=== PATIENT | female | born 1970 | race Caucasian/White ===

== ENCOUNTER 2018-02-04 09:31 | Day surgery (SDC) | payer BC ==
[2018-01-31 17:06] LABS: BASOPHILS % (AUTO) 0.3 % (0-1); EOSINOPHILS # (AUTO) 0.1 X10'3 (0-0.9); EOSINOPHILS % (AUTO) 1.4 % (0-6); LYMPHOCYTES # (AUTO) 2.7 X10'3 (1.1-4.8); MEAN CORPUSCULAR HEMOGLOBIN 32.8 PG (27.0-31.0); MEAN CORPUSCULAR VOLUME 93.6 FL (78-98); MEAN PLATELET VOLUME 8.1 FL (7.4-10.4); MONOCYTES # (AUTO) 0.7 X10'3 (0-0.9); MONOCYTES % (AUTO) 7.5 % (2-12); NEUTROPHILS # (AUTO) 6.1 X10'3 (1.8-7.7); NEUTROPHILS % (AUTO) 62.8 % (42-75); PRE OP HEMATOCRIT 39.7 % (35.0-45.0); PRE OP HEMOGLOBIN 13.9 g/dL (12.0-16.0); PRE OP PLATELET COUNT 258 X10'3 (140-440); RED BLOOD COUNT 4.24 X10'6 (4.20-5.60); RED CELL DISTRIBUTION WIDTH 12.5 % (11.5-14.5)
[2018-01-31 17:13] LABS: PRE OP PROTIME 10.7 SECONDS (9.0-12.0)
[2018-01-31 17:18] LABS: ALBUMIN 3.7 G/DL (3.4-5.0); ALBUMIN/GLOBULIN RATIO 0.9 (1.1-1.5); ALKALINE PHOSPHATASE 71 IU/L (46-116); BLOOD UREA NITROGEN 16 MG/DL (7-18); BUN/CREATININE RATIO 18.8 (6.6-38.0); CALCIUM 9.5 MG/DL (8.5-10.1); CHLORIDE 102 MMOL/L (99-107); CREATININE 0.85 MG/DL (0.40-0.90); PRE OP ALT 23 U/L (30-65); PRE OP ANION GAP 10 (8-16); PRE OP AST 20 U/L (10-37); PRE OP BILIRUB, TOTAL 0.4 MG/DL (0.0-1.0); PRE OP GLUCOSE 96 MG/DL (70-104); PRE OP SODIUM 139 MMOL/L (135-145); TOTAL CARBON DIOXIDE 27.2 MMOL/L (24-32); TOTAL PROTEIN 7.8 G/DL (6.4-8.2); eGFR 72 ML/MIN
[2018-01-31 17:54] LABS: HCG SERUM QL NEGATIVE
[2018-02-04] VITALS (22 sets, daily range): BP systolic 97–129; BP diastolic 49–77
[~2018-02-04] VITALS: Ht 157.5 cm; Wt 68.3 kg
[~2018-02-04 09:31] MED LIST: BUPIVAcaine/PF 2.5mg/ml (0.25%) 10ml vial ONE; CITA10TA9 PO; GENTAMICIN IV ONE; LIDOcaine 1% 30ml preserv. free vial ONE; LISI-604 PO; NORMAL SALINE IV ONE; clindamycin phosphate 40gm vag cream ONE; clindamycin-Cleocin 900mg/D5W 50 ML IV ONE; famotidine 20mg tablet PO ONE; morphine 10mg/ml inj. ONE; ringers solution, lacted 1,000 ML IV SCH; vasoPRESSIN 20 units/ml inj. ONE
[2018-02-04] MEDS ORDERED: LIDOcaine 1% (10mg/ml) 2ml vial ONE (09:47)
[2018-02-04] MEDS ORDERED: scopolamine 1.5mg patch.TD72 TD ONE (11:27)
[2018-02-04] MEDS ORDERED: midazolam 2 mg/2 ml injection ONE (12:43)
[2018-02-04] MEDS ORDERED: fentaNYL /PF 50mcg/ml 5ml ampule ONE (12:44)
[2018-02-04] MEDS ORDERED: sevoflurane 250ml liquid IH ONE (12:45)
[2018-02-04] MEDS ORDERED: LIDOcaine 2% (20mg/ml) 5ml vial ONE (12:59)
[2018-02-04] MEDS ORDERED: rocuronium 10mg/ml inj IV ONE (12:59)
[2018-02-04] MEDS ORDERED: propofol inj 20 ML IV ONE (12:59)
[2018-02-04] MEDS ORDERED: fluoroscein sod 10% (100mg/ml) 5ml vial ONE (13:02)
[2018-02-04] MEDS ORDERED: dexamethasone sod phosphate 4mg/ml inj. ONE (13:02)
[2018-02-04] MEDS ORDERED: ceFAZolin 1000mg inj ONE (13:15)
[2018-02-04] MEDS ORDERED: glycopyrrolate 0.2mg/ml inj ONE (14:00)
[2018-02-04] MEDS ORDERED: neostigmine methylsulfate 1 MG/ML 10ml vial ONE (14:00)
[2018-02-04] MEDS ORDERED: magnesium hydroxide 30ml (MOM) UD suspension PO PRN (15:10)
[2018-02-04] MEDS ORDERED: naloxone 0.4 mg/ml inj IV PRN (15:10)
[2018-02-04] MEDS ORDERED: ondansetron/PF 4mg/2ml inj IV PRN ×2 (15:10→15:20)
[2018-02-04] MEDS ORDERED: HYDROcodone/acetaminophen 5mg/325mg tablet PO PRN ×2 (15:10)
[2018-02-04] MEDS ORDERED: normal saline 500ml IV soln 500 ML IV PRN (15:10)
[2018-02-04] MEDS: ringers solution, lacted 1,000 ML IV SCH ×2 (15:10→20:18)
[2018-02-04] MEDS ORDERED: diphenhydrAMINE 50 mg/ml inj IV PRN (15:10)
[2018-02-04] MEDS ORDERED: temazepam 15mg capsule PO PRN (15:10)
[2018-02-04] MEDS ORDERED: CADD PCA waste documentation MC PRN (15:10)
[2018-02-04] MEDS ORDERED: ringers solution, lacted 1,000 ML IV SCH (15:17)
[2018-02-04] MEDS ORDERED: morphine 4 MG/ML inj SYRINge IV PRN ×2 (15:20)
[2018-02-04] MEDS ORDERED: proCHLORperazine 10 MG/2 ml inj IV PRN (15:20)
[2018-02-04] MEDS ORDERED: meperidine/PF 25mg/ml syringe IV PRN ×3 (15:20)
[2018-02-04] MEDS: HYDROmorphone/NS 1 mg/ml CADD 50 ML IV SCH ×5 (15:33→23:00)
[2018-02-04] MEDS: simethicone 80mg chew tab PO SCH (20:16)
[2018-02-04] MEDS: docusate sod 100mg capsule PO SCH (20:17)
[2018-02-04] MEDS: ketorolac trometh. 30mg/ml inj. IV PRN (21:31)
[2018-02-05] MEDS: HYDROmorphone/NS 1 mg/ml CADD 50 ML IV SCH ×4 (01:00→07:00)
[2018-02-05 03:59] VITALS: BP 103/69
[2018-02-05 05:15] LABS: BASOPHILS % (AUTO) 0 % (0-1); EOSINOPHILS # (AUTO) 0.2 X10'3 (0-0.9); EOSINOPHILS % (AUTO) 1.7 % (0-6); HEMATOCRIT 31.1 % (35.0-45.0); HEMOGLOBIN 10.6 g/dl (12.0-16.0); LYMPHOCYTES # (AUTO) 0.8 X10'3 (1.1-4.8); LYMPHOCYTES % (AUTO) 6.2 % (21-51); MEAN CORPUSCULAR HEMOGLOBIN 32.4 PG (27.0-31.0); MEAN CORPUSCULAR VOLUME 95.1 FL (78-98); MEAN PLATELET VOLUME 8.2 FL (7.4-10.4); MONOCYTES # (AUTO) 0.7 X10'3 (0-0.9); MONOCYTES % (AUTO) 5.2 % (2-12); NEUTROPHILS # (AUTO) 11.4 X10'3 (1.8-7.7); NEUTROPHILS % (AUTO) 86.9 % (42-75); PLATELET COUNT 204 X10'3 (140-440); RED BLOOD COUNT 3.27 X10'6 (4.20-5.60); RED CELL DISTRIBUTION WIDTH 12.5 % (11.5-14.5); WHITE BLOOD COUNT 13.1 X10'3 (4.5-11.0)
[2018-02-05 08:36] VITALS: BP 96/64
[2018-02-05] MEDS: docusate sod 100mg capsule PO SCH (09:01)
[2018-02-05] MEDS: simethicone 80mg chew tab PO SCH ×2 (09:01→13:00)
[2018-02-05] MEDS: ringers solution, lacted 1,000 ML IV SCH (09:02)
[2018-02-05 12:00] VITALS: BP 103/66
[2018-02-05] MEDS: ketorolac trometh. 30mg/ml inj. IV PRN (13:00)
== END 2018-02-05 17:30 | disposition home or self-care (01) ==
LOC: PAS 09:31 → SUR 3N 19:20 → PAS 02-05 17:30
PROVIDERS: ATTEND Specialist
DX: D25.1 Intramural leiomyoma of uterus (principal); N81.4 Uterovaginal prolapse, unspecified; N39.46 Mixed incontinence; N72 Inflammatory disease of cervix uteri; K66.0 Peritoneal adhesions (postprocedural) (postinfection); F32.9 Major depressive disorder, single episode, unspecified; F41.9 Anxiety disorder, unspecified; I10 Essential (primary) hypertension; Z98.51 Tubal ligation status; Z79.891 Long term (current) use of opiate analgesic; Z88.1 Allergy status to other antibiotic agents; Z88.0 Allergy status to penicillin; Z88.2 Allergy status to sulfonamides; Z79.899 Other long term (current) drug therapy; Z98.890 Other specified postprocedural states
CPT/HCPCS: 36415; 57260; 57283; 57288; 58552; 80053; 84703; 85025; 85610; 85730; 86885; 86900; 86901; 87070; A4315; A4355; C1771; J0690; J1100; J1170; J1580; J1885; J2001; J2250; J2270; J2405; J2704; J2710; J3010; J3490; J7030; J7120; A6250; A7000